=== PATIENT | female | born 2005 | race African-American/Black ===

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

== ENCOUNTER 2024-02-17 11:06 | Emergency (ER) | payer OTHER, SELFPAY ==
[2024-02-17 11:12] VITALS: BP 113/67; PULSE 65; RESP 20; TEMP 37.1; O2SAT 100
--- NOTE | 2024-02-17 11:48 | ED.FEMALEGU ---
HPI - Female Genitourinary General Chief complaint: Urogenital-Female Stated complaint: Yeast Infection Time Seen by Provider: 02/17/24 11:45 Source: patient, RN notes reviewed and old records reviewed Mode of arrival: ambulatory Limitations: no limitations History of Present Illness HPI Narrative: 18 year old female presents to school with complaints of clumpy white thick discharge with some vaginal itching. Patient reports that she was treated previously in the last 2 months with antibiotics for a urinary tract infection and wonders if that caused her symptoms. Patient denies any concern for STD's has not tried any OTC medications for her symptoms. Patient denies any urinary symptoms, denies any pain, frequency or urgency with urination. MD elicited complaint: other (yeast infection) Pertinent past history: other (previous UTI with antibiotics received) Onset (ago): day(s) (2) Location of symptoms: external genitalia and vaginal Severity scale (1-10): 2 Vaginal discharge: white and thick/cheesy Vaginal bleeding: none Treatment prior to arrival: none Related Data Allergies Allergy/AdvReac Type Severity Reaction Status Date / Time No Known Allergies Allergy Verified 02/17/24 11:23 Review of Systems Review of Systems: CONSTITUTIONAL: Denies fever, chills, or sweats. EYES: Denies visual changes, redness, or discharge. ENT: Denies rhinorrhea, congestion, sore throat, or otalgia. CARDIOVASCULAR: Denies chest pain, palpitations, or edema. RESPIRATORY: Denies cough or dyspnea. GASTROINTESTINAL: Denies abdominal pain, nausea, vomiting, or diarrhea. GENITOURINARY: Denies dysuria or hematuria. reports thick white clumpy discharge with vaginal itching SKIN: Denies rash or itching. MUSCULOSKELETAL: Denies back pain, joint pain, or myalgia. NEUROLOGIC: Denies headache, numbness, or weakness. PSYCHIATRIC: Denies anxiety or depression. All systems reviewed & are unremarkable except as noted in HPI and below PMFSH Past Medical History Medical History Urinary tract infection Social History Social History Smoking status: Never smoker Occupation/Education: student Gender identity (if verbalized by the patient): Female Comments At time of signature, agree with nursing past medical, surgical, social and family history. There is no relevant family history pertinent to the presenting complaint Exam Narrative: GENERAL: Well-appearing, well-nourished, and in no acute distress. HEAD: Normocephalic, atraumatic. EYES: PERRLA and EOMI. ENT: Nares clear, no rhinorrhea or epistaxis. Mucous membranes moist. NECK: Supple.no lymphadenopathy CHEST: Clear to auscultation. No respiratory distress.SAO2 100% on room air HEART: Regular rate and rhythm. No murmur heard. Normal peripheral pulses. ABDOMEN: Soft, nontender, nondistended, normal active bowel sounds.Complaints of thick white clumpy vaginal discharge with itching no urinary symptoms. EXTREMITIES: Normal range of motion. No edema. SKIN: Warm, dry, no rash. NEURO: No focal deficits. Alert and oriented x3. Course Course Emergency Course: Patient is aware of diagnosis, understands and agrees to treatment plan.? Anticipatory guidance given.? Patient agrees to follow-up as directed and is aware of reasons to seek care at the emergency department. Portions of this record may have been created with voice recognition software Level of Care: Express Care Visit Vital Signs Vital signs: Vital Signs Temperature 37.1 C 02/17/24 11:12 Pulse Rate 65 02/17/24 11:12 Respiratory Rate 20 02/17/24 11:12 Blood Pressure 113/67 02/17/24 11:12 Pulse Oximetry 100 02/17/24 11:12 Temperature 37.1 C 02/17/24 11:12 Pulse Rate 65 02/17/24 11:12 Respiratory Rate 20 02/17/24 11:12 Blood Pressure 113/67 02/17/24 11:12 Pulse Oximetry 100 02/17/24 11:12 R
== END 2024-02-17 12:09 | disposition home or self-care (01) ==
PROVIDERS: Emergency Provider Registered Nurse
DX: B37.31 Acute candidiasis of vulva and vagina (principal)
CPT/HCPCS: 99213; G0463

== ENCOUNTER 2024-09-08 12:17 | Emergency (ER) | payer OTHER, SELFPAY ==
[2024-09-08 12:23] VITALS: BP 129/63; PULSE 66; RESP 20; TEMP 36.8; O2SAT 98
--- NOTE | 2024-09-08 12:39 | ED.FEMALEGU ---
HPI - Female Genitourinary General Chief complaint: Urogenital-Female Stated complaint: STI testing Time Seen by Provider: 09/08/24 12:39 Source: patient Mode of arrival: ambulatory Limitations: no limitations History of Present Illness HPI Narrative: 19 yo F presents with STI testing. States her boyfriend was positive for chlamydia and is on antibiotics. Pt is not having any symptoms and wants testing prior to treatment. All systems reviewed and negative except as noted above. Related Data Allergies Allergy/AdvReac Type Severity Reaction Status Date / Time No Known Allergies Allergy Verified 02/17/24 11:23 Review of Systems Review of Systems: CONSTITUTIONAL: Denies fever, chills, or sweats. EYES: Denies visual changes, redness, or discharge. ENT: Denies rhinorrhea, congestion, sore throat, or otalgia. CARDIOVASCULAR: Denies chest pain, palpitations, or edema. RESPIRATORY: Denies cough or dyspnea. GASTROINTESTINAL: Denies abdominal pain, nausea, vomiting, or diarrhea. GENITOURINARY: Denies dysuria or hematuria. SKIN: Denies rash or itching. MUSCULOSKELETAL: Denies back pain, joint pain, or myalgia. NEUROLOGIC: Denies headache, numbness, or weakness. PSYCHIATRIC: Denies anxiety or depression. All other systems reviewed are negative, except as documented in HPI. PMFSH Past Medical History Medical History Urinary tract infection Social History Social History Smoking status: Never smoker Occupation/Education: student Gender identity (if verbalized by the patient): Female Comments At time of signature, agree with nursing past medical, surgical, social and family history. There is no relevant family history pertinent to the presenting complaint. Exam Narrative: GENERAL: This is a well-nourished, well-developed patient, in no apparent distress. HEAD: normocephalic, atraumatic. EYES: PERRL. Sclera clear/white. Vision is grossly intact. EARS: External ears normal NOSE: External nose normal NECK: Neck supple, non-tender without lymphadenopathy, masses or thyromegaly. CARDIOVASCULAR: Regular rate and rhythm without murmurs, gallops, or rubs. RESPIRATORY: Clear to auscultation. Breath sounds equal bilaterally. No wheezes, rales, or rhonchi. SKIN: warm, Dry, intact with no suspicious lesions or rash, good texture and turgor. NEURO: awake, alert, and oriented to person, place and time. There were no obvious focal neurologic abnormalities. EXTREMITIES: No joint tenderness, effusion, or edema noted. Course Course Level of Care: Express Care Visit Vital Signs Vital signs: Vital Signs Temperature 36.8 C 09/08/24 12:23 Pulse Rate 66 09/08/24 12:23 Respiratory Rate 20 09/08/24 12:23 Blood Pressure 129/63 09/08/24 12:23 Pulse Oximetry 98 09/08/24 12:23 Temperature 36.8 C 09/08/24 12:23 Pulse Rate 66 09/08/24 12:23 Respiratory Rate 20 09/08/24 12:23 Blood Pressure 129/63 09/08/24 12:23 Pulse Oximetry 98 09/08/24 12:23 Reviewed MDM - Female Genitourinary MDM Narrative Medical decision making narrative: Patient is aware of diagnosis, understands and agrees to treatment plan. Anticipatory guidance given. Patient agrees to follow-up as directed and is aware of reasons to seek care at the emergency department. Portions of this record may have been created with voice recognition software Patient here for STI testing. She is asymptomatic. She does not want treatment unless she has a positive result. Discharge Plan Discharge Clinical Impression: Concern about sexually transmitted disease in female without diagnosis Patient Disposition: Home, Self-Care Condition: Stable Instructions: Sexually Transmitted Diseases (ED) Additional Instructions: You were tested for chlamydia, gonorrhea and Trichomonas today. Test results will take 24-48 hours. If you have a positive result we will call you at that time and prescribed an antibiotic. Avoid all sexual activity until you know your test results. 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 Prescriptions: No Action fluconazole 150 mg tablet 150 mg PO ONCE Qty: 2 0RF Rx Instructions: as a single dose and may repeat X1 in 72 hours as needed Follow-up/Referrals: UNKNOWN,DOCTOR [Primary Care Provider] - Time of Disposition: 12:43
--- NOTE | 2024-09-08 13:07 | PC.NURSE ---
PT DECLINED TREATMENT AT THIS TIME, STATES IF RESULTS ARE POSITIVE, SHE WILL TAKE RX.
[2024-09-08 21:53] LABS: Trichomonas Vag PCR NOT DETECTED (NOT DETECTE)
[2024-09-08 22:16] LABS: Chlamydia trachomatis DETECTED (NOT DETECTE); Neisseria gonorrhoeae PCR NOT DETECTED (NOT DETECTE)
== END 2024-09-08 12:45 | disposition home or self-care (01) ==
PROVIDERS: Emergency Provider Nurse Practitioner Family
DX: A74.9 Chlamydial infection, unspecified (principal)
CPT/HCPCS: 87491; 87591; 87661; 99213; G0463